=== PATIENT | male | born 1965 | race Caucasian/White ===

== ENCOUNTER 2017-01-21 16:03 | Emergency (ER) | payer OTHER ==
--- NOTE | 2017-01-21 17:28 | ERPHSYRPT ---
- History of Present Illness Time Seen by Provider: 01/21/17 17:16 Source: patient Exam Limitations: no limitations Patient Subjective Stated Complaint: toothache Triage Nursing Assessment: abscess broken off tooth ojn right lower side of mouth. patietn skin warm dry and intact, ambualtes well gait is steady, lung soudns clear, has been having teth pulled these is last to come out Physician History: The patient is a 51-year-old male complains of a toothache in the right lower molar for 1 day. He has a known decaying tooth and this has exacerbated the problem recently. Timing/Duration: gradual onset, this morning Severity: moderate ENT Location: dental Prearrival Treatment: no prearrival treatment Associated Symptoms: denies symptoms, tooth pain Allergies/Adverse Reactions: codeine Allergy (Verified 01/21/17 16:41) Hx Tetanus, Diphtheria Vaccination/Date Given: Yes Hx Influenza Vaccination/Date Given: No Hx Pneumococcal Vaccination/Date Given: No Immunizations Up to Date: Yes - Review of Systems Constitutional: No Fever, No Chills Eyes: No Symptoms Ears, Nose, & Throat: Mouth Pain Respiratory: No Cough, No Dyspnea Cardiac: No Chest Pain, No Edema, No Syncope Abdominal/Gastrointestinal: No Abdominal Pain, No Nausea, No Vomiting, No Diarrhea Genitourinary Symptoms: No Dysuria Musculoskeletal: No Back Pain, No Neck Pain Skin: No Rash Neurological: No Dizziness, No Focal Weakness, No Sensory Changes Psychological: No Symptoms Endocrine: No Symptoms Hematologic/Lymphatic: No Symptoms Immunological/Allergic: No Symptoms All Other Systems: Reviewed and Negative - Past Medical History Pertinent Past Medical History: No Other Medical History: RIGHT KNEE INJURY ONE YEAR AGO(STRAINED LIGAMENTS) - Past Surgical History Past Surgical History: Yes Neuro Surgical History: No Pertinent History Cardiac: No Pertinent History Respiratory: No Pertinent History Gastrointestinal: No Pertinent History Genitourinary: No Pertinent History Musculoskeletal: No Pertinent History Male Surgical History: No Pertinent History Other Surgical History: TONSILLECTOMY AT AGE 4 - Social History Smoking Status: Never smoker Exposure to second hand smoke: No Drug Use: none Patient Lives Alone: No - Nursing Vital Signs Nursing Vital Signs: Initial Vital Signs Temperature 99 F 01/21/17 16:04 Pulse Rate 72 01/21/17 16:04 Respiratory Rate 18 01/21/17 16:04 Blood Pressure 154/91 01/21/17 16:04 O2 Sat by Pulse Oximetry 96 01/21/17 16:04 Pain Scale Pain Intensity 10 - Physical Exam General Appearance: mild distress Eye Exam: bilateral eye: normal inspection Ear Exam: bilateral ear: auricle normal Nasal Exam: normal inspection Throat Exam: dental tenderness (decaying right lower anterior molar with surrounding swelling and erythema.) Neck Exam: supple Cardiovascular/Respiratory Exam: normal breath sounds, regular rate/rhythm Abdominal Exam: non-tender, soft Neurologic Exam: alert, oriented x 3, sensation nml, No motor deficits Skin Exam: normal color, warm, dry SpO2 Interpretation: normal SpO2: 96 - Departure Time of Disposition: 17:31 Departure Disposition: Home Clinical Impression: Pain, dental, Dental abscess Condition: Stable Critical Care Time: No Referrals: CAROLINA BURGOS MD [Primary Care Provider] - Additional Instructions: You have a dental abscess. Take penicillin 500 mg 4 times a day for 10 days. Take Vicodin one tablet every 4-6 hours as needed for pain. Take Tylenol and ibuprofen as needed. Follow-up with your dentist in 1-2 days. Prescriptions: Hydrocodone/Acetaminophen [Vicodin 5-300 mg Tablet] 1 each PO Q4-6HPRN PRN #6 tablet PRN Reason: Pain Penicillin V Potassium 500 mg PO QID #40 tablet
[2017-01-21 17:44] VITALS: BP 122/97; PULSE 81; O2SAT 95
== END 2017-01-21 17:44 | disposition home or self-care (01) ==
LOC: ED 16:03
DX: K04.7 Periapical abscess without sinus (principal); K08.89 Other specified disorders of teeth and supporting structures
CPT/HCPCS: 99282

== ENCOUNTER 2024-06-03 10:33 | Emergency (ER) | payer BC ==
[2024-06-03 11:03] VITALS: BP 146/83; PULSE 72; RESP 18; TEMP 97.4; O2SAT 100
[2024-06-03 11:06] LABS: Appearance Clear (Clear); Bacteria None Seen /HPF (None Seen); Bilirubin Negative (Negative); Blood Negative (Negative); Epithelial Cells None Seen /HPF (None Seen); Glucose, Urine Negative (Negative); Hyaline Casts NONE SEEN /LPF (0-2); Ketones Negative (Negative); Leukocyte Esterase Negative (Negative); Nitrite Negative (Negative); Ph 5.5 (4.6-8.0); Protein,Urine Dip Negative (Negative); RBC 0-2 /HPF (0-5); Specific Gravity 1.015 (1.005-1.030); Urobilinogen 0.2 mg/dL (0.2); WBC 0-2 /HPF (0-5)
--- NOTE | 2024-06-03 11:20 | ERPHSYRPT ---
- History of Present Illness Time Seen by Provider: 06/03/24 10:38 Source: patient Exam Limitations: no limitations Patient Subjective Stated Complaint: C/O headache for a few weeks. States he when to [facility] on 05/19/24 and given an antibiotic for a sinus infection. In dicates headache improved with antibiotics but never went completely away. Headache worse today than it has been in the past 2 weeks. Triage Nursing Assessment: Patient brought down to ER in a W/C by [facility] staff. He is alert and oriented. Patient able to ambulate per self to the restroom with a steady gait without difficulties. Skin tone normal. Nasal congestion present. Physician History: 59-year-old fairly healthy male presented in the ER with complains of left maxillary and frontal sinus area pain off and on for the last 2 to 3 weeks. Patient was seen outpatient and has finished course of doxycycline which did help with his symptoms but now headache is back. Patient reports having 9/10 intensity headache earlier on the left side with radiation to the left maxilla, took [place] which she usually takes for arthritis and currently feeling much better. Does have nasal/sinus congestion but denies any fever or chills. No neck pain. No difficulty movements of eyeball. Allergies/Adverse Reactions: codeine Allergy (Verified 06/03/24 10:46) Home Medications: Hydrocodone/Acetaminophen [Hydrocodone-Acetamin 7.5-325] 1 tab PO TID PRN 06/03/24 [History] Sodium Chloride [[place] Saline] 1 spray INTRANASAL BID PRN 06/03/24 [History] Hx Tetanus, Diphtheria Vaccination/Date Given: Yes Hx Influenza Vaccination/Date Given: No Hx Pneumococcal Vaccination/Date Given: No Immunizations Up to Date: Yes Travel Risk - International Travel Have you traveled outside of the country in past 3 weeks: No - Emerging Infectious Disease Are you exhibiting symptoms associated with any current EIDs: Yes Symptoms: Headaches/Body Aches/ - Review of Systems Constitutional: No Symptoms Ears, Nose, & Throat: Nose Congestion, Sinus Drainage Respiratory: No Symptoms Cardiac: No Symptoms Abdominal/Gastrointestinal: No Symptoms Musculoskeletal: Arthralgias Psychological: No Symptoms Hematologic/Lymphatic: No Symptoms - Past Medical History Pertinent Past Medical History: Yes Neurological History: Migraines Cardiac History: No Pertinent History Respiratory History: No Pertinent History Endocrine Medical History: No Pertinent History Musculoskeletal History: Osteoarthritis, Other Other Medical History: PARTIAL TEAR ROTATOR CUFF LEFT - NO SURGERY, spinal toya nosis - Past Surgical History Past Surgical History: Yes Neuro Surgical History: No Pertinent History Cardiac: No Pertinent History Respiratory: No Pertinent History Gastrointestinal: No Pertinent History Genitourinary: No Pertinent History Musculoskeletal: No Pertinent History Male Surgical History: No Pertinent History Other Surgical History: TONSILLECTOMY AT AGE 4 - Social History Smoking Status: Never smoker Exposure to second hand smoke: No Drug Use: none Patient Lives Alone: No - Social Determinants of Health Will the patient participate in the screening: Declined to provide - Nursing Vital Signs Nursing Vital Signs: Initial Vital Signs Temperature 97.4 F 06/03/24 10:45 Pulse Rate 72 06/03/24 10:45 Respiratory Rate 18 06/03/24 10:45 Blood Pressure 146/83 06/03/24 10:45 O2 Sat by Pulse Oximetry 100 06/03/24 10:45 Pain Scale Pain Intensity 8 - Physical Exam General Appearance: no apparent distress, alert Eye Exam: bilateral eye: normal inspection, PERRL, EOMI Ear Exam: bilateral ear: auricle normal, canal normal, TM normal, other (Bilateral negative mastoid tenderness) Nasal Exam: normal inspection, sinus tenderness (Left maxillary/frontal) Throat Exam: normal, pharynx normal, moist mucus membranes, No dental tenderness, No excessive drooling Neck Exam: normal inspection, non-tender, supple, full range of motion, trachea midline, No meningismus Cardiovascular/Respiratory Exam: normal breath sounds, regular rate/rhythm Neurologic Exam: alert, oriented x 3, cooperative, 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, normal mood/affect, nml cerebellar function, nml station & gait, sensation nml, No motor deficits Skin Exam: normal color SpO2 Interpretation: normal SpO2: 100 O2 Delivery: Room Air Ordered Tests: Active Orders 24 hr Category Date Time Status UA W/RFX UR CULTURE Stat Lab 06/03/24 10:54 Completed Lab/Rad Data: Laboratory Results 06/03/24 Range/Units 10:54 Urine Color Yellow (Yellow) Urine Appearance Clear (Clear) Urine pH 5.5 (4.6-8.0) Ur Specific [place] 1.015 (1.005-1.030) Urine Protein Negative (Negative) Urine Glucose (UA) Negative (Negative) mg/dL Urine Ketones Negative (Negative) Urine Blood Negative (Negative) Urine Nitrite Negative (Negative) Urine Bilirubin Negative (Negative) Urine Urobilinogen 0.2 (0.2) mg/dL Ur Leukocyte Esterase Negative (Negative) U Hyaline Cast (Auto) NONE SEEN (0-2) /LPF Urine Microscopic RBC 0-2 (0-5) /HPF Urine Microscopic WBC 0-2 (0-5) /HPF Ur Epithelial Cells None Seen (None Seen) /HPF Urine Bacteria None Seen (None Seen) /HPF Urine Culture Reflexed NO (NO) - Progress Progress: unchanged Progress Note: 06/03/24 11:23 59-year-old is evaluated in the ER for left-sided headache and sinus pressure. Nonfocal neuroexam. Headache is better already after taking [place] at home. Patient does have tenderness in the left frontal and maxillary sinus area. I believe patient has sinusitis, because of his worsening pain, recommended CT head which patient does not wanted. Also has negative COVID flu and RSV. He is offered symptomatic relief but patient is already feeling better. I would start him on 14 days course of Augmentin and a short course of steroid along with Flonase. Discussed signs symptoms of worsening needing return to ER which he seems understanding. Stable for discharge. Counseled pt/family regarding: lab results, diagnosis, need for follow-up Medical Desision Making - Risk of complications The pt has a mod risk of morbidity or mortality based on: Need for prescription drug management - Departure Departure Disposition: Home Clinical Impression: Acute sinusitis Condition: Stable Critical Care Time: No Referrals: CHRIS HERNANDEZ [Primary Care Provider] - Follow up with PCP 1 day Instructions: Headache, Adult (DC), Sinusitis in adults - ED discharge instructions Prescriptions: Amox Tr/Potass Clav. 875 mg [Augmentin 875-125 Tablet] 875 mg PO BID 14 Days #28 tablet Prednisone 20 mg [Deltasone 20 mg] 60 mg PO DAILY 5 Days #15 tablet Fluticasone Propionate [Flonase NASAL] 16 gm NS DAILY 10 Days #1 inh
[2024-06-03 12:01] LABS: INFLUENZA A NEGATIVE (NEGATIVE); INFLUENZA B NEGATIVE (NEGATIVE); RESPIRATORY SYNCTIAL VIRUS NEGATIVE (NEGATIVE); SARS-CoV-2 Xpert Express NEGATIVE (NEGATIVE)
== END 2024-06-03 11:39 | disposition home or self-care (01) ==
LOC: ED 10:33
DX: J01.90 Acute sinusitis, unspecified (principal); R51.9 Headache, unspecified; Z79.891 Long term (current) use of opiate analgesic; Z79.52 Long term (current) use of systemic steroids; Z79.899 Other long term (current) drug therapy
CPT/HCPCS: 0241U; 81001; 99284; 99282